=== PATIENT | female | born 1990 | race Caucasian/White ===

== ENCOUNTER 2019-01-02 15:35 | Inpatient (IN) | payer MEDICAID ==
[~2019-01-02] VITALS: Ht 160 cm; Wt 108.9 kg
[2019-01-02 14:50] VITALS: BP_SYST 99
[~2019-01-02 15:35] MED LIST: CEFAZOLIN 2 GM IVPB PREMIX 50 ML IV ONE; GLYCOPYRROLATE 0.2 MG/ML VIAL IJ ONE; LR 1,000 ML IV.SOLN IV ONE; MIDAZOLAM HCL 5 MG/5 ML VIAL IVP ONE; NEOSTIGMINE METHYLSULFATE 1 MG/ML, 10 ML VIAL IVP ONE; NS IRRIG SOLN 1000 ML IR ONE; PROPOFOL 200MG/ 20ML VIAL (DIPRIVAN) IV ONE; ROCURONIUM BROMIDE 10 MG/ML (ZEMURON) IV ONE; SEVOFLURANE 15 MIN GAS INH ONE; fentaNYL CITRATE/PF 100 MCG/2 ML AMP IVP ONE
[2019-01-02] MEDS ORDERED: D5NS 1,000 ML IV SCH (16:15)
[2019-01-02] MEDS ORDERED: ONDANSETRON HCL 4 MG/2 ML VIAL IVP PRN (16:15)
[2019-01-02 17:22] VITALS: BP_SYST 99
[2019-01-02 18:52] LABS: BILIRUBIN,URINE NEGATIVE (NEGATIVE); BLOOD, URINE NEGATIVE (NEGATIVE); CLARITY/URINE CLEAR (CLEAR); COLOR,URINE YELLOW (YELLOW); GLUCOSE,URINE NEGATIVE (NEGATIVE); KETONES,URINE NEGATIVE (NEGATIVE); LEUKOCYTE ESTERASE ,URINE NEGATIVE (NEGATIVE); NITRITE, URINE NEGATIVE (NEGATIVE); PROTEIN URINE NEGATIVE (NEGATIVE); UROBILINOGEN,URINE 0.2 (0.2-1.0)
[2019-01-02 18:55] LABS: HCG,QUAL RESULT NEGATIVE (NEGATIVE)
[2019-01-02 19:31] LABS: PROTHROMBIN TIME 10.1 SECS (9.5-12.5)
[2019-01-02 20:30] VITALS: BP_SYST 118
[2019-01-02] MEDS ORDERED: cefTRIAXone 1 GM IVPB PREMIX 50 ML IV ONE (22:39)
[2019-01-02] MEDS ORDERED: metroNIDAZOLE 500 mg/NS 200 ML IV ONE (22:39)
[2019-01-02] MEDS: metroNIDAZOLE 500 mg/NS 100 ML IV SCH (22:48)
[2019-01-02] MEDS: cefTRIAXone 1 GM IVPB PREMIX 50 ML IV SCH (23:48)
[2019-01-02] MEDS: MORPHINE 4 MG/ML INJ. SYRINGE IVP PRN (23:54)
[2019-01-02 23:55] LABS: BASOPHILS # (AUTO) 0.1 K/uL (0.0-0.2); BASOPHILS % (AUTO) 0.7 % (0.0-2.0); EOSINOPHILS # (AUTO) 0.3 K/uL (0.0-0.4); EOSINOPHILS % (AUTO) 2.8 % (0.0-4.0); HEMATOCRIT 40.8 % (36-48); HEMOGLOBIN 13.5 g/dL (12.0-16.0); LYMPHOCYTES # (AUTO) 2.6 K/uL (1.0-5.5); LYMPHOCYTES % (AUTO) 26.5 % (20.5-51.5); MEAN CORPUSCULAR HEMOGLOBIN 30 pg (27-31); MEAN CORPUSCULAR HGB CONC 33 % (32-36); MEAN CORPUSCULAR VOLUME 91 fL (79.0-98.0); MONOCYTES # (AUTO) 0.6 K/uL (0.0-1.0); MONOCYTES % (AUTO) 6.1 % (1.7-9.3); NEUTROPHILS # (AUTO) 6.4 K/uL (1.8-7.7); NEUTROPHILS % (AUTO) 63.9 % (40.0-70.0); PLATELET COUNT (AUTO) 307 K/uL (130-430); RED CELL DISTRIBUTION WIDTH 12.9 % (9.0-15.0)
[2019-01-03 00:21] LABS: CALCIUM 8.4 mg/dL (8.4-11.0); CREATININE 0.83 mg/dL (0.55-1.30); POTASSIUM 3.6 mmol/L (3.5-5.1)
[2019-01-03 00:26] LABS: TOTAL BILIRUBIN 0.3 mg/dL (0.0-1.0)
[2019-01-03] MEDS: metroNIDAZOLE 500 mg/NS 100 ML IV SCH ×3 (05:26→21:42)
[2019-01-03] MEDS: MORPHINE 4 MG/ML INJ. SYRINGE IVP PRN (05:30)
[2019-01-03 05:48] VITALS: BP_SYST 121
[2019-01-03] MEDS ORDERED: fentaNYL CITRATE/PF 100 MCG/2 ML AMP IVP PRN ×2 (07:30)
[2019-01-03] MEDS ORDERED: ONDANSETRON HCL 4 MG/2 ML VIAL IVP PRN ×2 (07:30→08:30)
[2019-01-03] MEDS ORDERED: KETOROLAC TROMETHAMINE 30 MG VIAL IVP PRN (07:30)
[2019-01-03] MEDS ORDERED: HYDROmorphone 2 MG/ML VIAL IVP PRN (08:30)
[2019-01-03] MEDS: CEFAZOLIN 1 GM IVPB PREMIX 50 ML IV SCH ×2 (08:30→13:38)
[2019-01-03] MEDS ORDERED: ACETAMINOPHEN 325 MG TABLET PO PRN (08:30)
[2019-01-03 11:15] VITALS: BP_SYST 121
[2019-01-03] MEDS: NACL 0.9% 1,000 ML IV SCH ×2 (12:22→17:44)
[2019-01-03 12:26] VITALS: BP_SYST 131
[2019-01-03] MEDS: HYDROcodone/ACETAMIN 5-325 MG TAB (NORCO/ VICODIN) PO PRN ×2 (12:28→20:41)
[2019-01-03 15:32] VITALS: BP_SYST 118
[2019-01-03 20:00] VITALS: BP_SYST 136
[2019-01-03] MEDS: cefTRIAXone 1 GM IVPB PREMIX 50 ML IV SCH (20:37)
[2019-01-04] VITALS: BP_SYST 123
[2019-01-04] MEDS: NACL 0.9% 1,000 ML IV SCH (03:36)
[2019-01-04] MEDS: MORPHINE 4 MG/ML INJ. SYRINGE IVP PRN ×2 (03:37→08:19)
[2019-01-04] MEDS: metroNIDAZOLE 500 mg/NS 100 ML IV SCH (05:41)
[2019-01-04 07:01] LABS: BASOPHILS % (AUTO) 0.5 % (0.0-2.0); EOSINOPHILS # (AUTO) 0.2 K/uL (0.0-0.4); EOSINOPHILS % (AUTO) 1.6 % (0.0-4.0); HEMATOCRIT 39.1 % (36-48); HEMOGLOBIN 13.2 g/dL (12.0-16.0); LYMPHOCYTES # (AUTO) 2.5 K/uL (1.0-5.5); LYMPHOCYTES % (AUTO) 26.6 % (20.5-51.5); MEAN CORPUSCULAR HEMOGLOBIN 30 pg (27-31); MEAN CORPUSCULAR HGB CONC 34 % (32-36); MEAN CORPUSCULAR VOLUME 89 fL (79.0-98.0); MONOCYTES # (AUTO) 0.6 K/uL (0.0-1.0); NEUTROPHILS # (AUTO) 6.1 K/uL (1.8-7.7); NEUTROPHILS % (AUTO) 65.3 % (40.0-70.0); PLATELET COUNT (AUTO) 310 K/uL (130-430); RED BLOOD CELL COUNT(AUTO) 4.39 MIL/uL (4.2-6.2); RED CELL DISTRIBUTION WIDTH 12.6 % (9.0-15.0); WHITE BLOOD COUNT (AUTO) 9.4 K/uL (4.8-10.8)
[2019-01-04 07:26] LABS: ALBUMIN 2.8 g/dL (3.4-4.8); CREATININE 0.82 mg/dL (0.55-1.30); POTASSIUM 3.7 mmol/L (3.5-5.1); TOTAL BILIRUBIN 0.5 mg/dL (0.0-1.0)
[2019-01-04 08:00] VITALS: BP_SYST 148
[2019-01-04] MEDS ORDERED: MILK OF MAGNESIA 30 ML UDC PO ONE (10:45)
[2019-01-04 11:35] VITALS: BP_SYST 130
[2019-01-04 12:15] VITALS: BP_SYST 130
== END 2019-01-04 14:46 | disposition home or self-care (01) | DRG 263 ==
LOC: SMU 15:35
PROVIDERS: ADMIT Internal Medicine Hospice and Palliative Medicine; ATTEND Internal Medicine Hospice and Palliative Medicine
PROC: 0FT44ZZ Resection of Gallbladder, Percutaneous Endoscopic Approach (ICD-10-PCS; principal; 2019-01-03 07:00)
DX: K80.01 Calculus of gallbladder with acute cholecystitis with obstruction (principal); E44.0 Moderate protein-calorie malnutrition; K82.1 Hydrops of gallbladder; E66.01 Morbid (severe) obesity due to excess calories; Z68.41 Body mass index [BMI] 40.0-44.9, adult
CPT/HCPCS: 36415; 80053; 81003; 84703; 85025; 85610-TC; 87081; 88304; 93005; 94760; C1727; J0690; J0696; J1170; J2250; J2270; J2405; J2704; J2710; J3010; J3490; J7030; J7042; J7120